=== PATIENT | female | born 1930 | race Caucasian/White ===

== ENCOUNTER 2020-12-15 14:48 | Inpatient (IN) | payer OTHER ==
[2020-12-15 16:05] LABS: Absolute Lymphocytes (CBC) 0.4 K/uL (0.7-4.9); Basophils % 0.5 % (0-1.3); Lymphocytes % 6.6 % (15.3-44.8); RBC Red Blood Cell Count 4.28 M/uL (3.86-4.86)
[2020-12-15 16:09] LABS: Protime INR 1.01
[2020-12-15 16:18] LABS: Albumin 3.6 g/dL (3.4-5.0); Bilirubin Total 0.4 mg/dL (0.2-1.0); Potassium 4.1 mmol/L (3.5-5.1); Protein, Total 7.3 g/dL (6.4-8.2)
--- NOTE | 2020-12-15 16:33 | RAD REPORT ---
EXAM DESCRIPTION: RAD - Hip Left 2 View - 12/15/2020 4:26 pm CLINICAL HISTORY: PAIN COMPARISON: No comparisons FINDINGS: Lucency is present traversing the intratrochanteric region compatible with a nondisplaced intertrochanteric proximal left femur fracture. No dislocation.
[2020-12-15] MEDS ORDERED: ONDANSETRON 4 MG/2 ML VIAL ONE (16:38)
[2020-12-15] MEDS ORDERED: MORPHINE 2 MG/ML SYR ONE (16:38)
--- NOTE | 2020-12-15 18:08 | ER ---
Nurse's Notes [facility] Name: Snehal Pacheco Age: 89 yrs Sex: Female : 1930 Arrival Date: 12/15/2020 Time: 14:52 Bed 23 Private MD: Diagnosis: Left hip fracture Presentation: 12/15 14:55 Chief complaint: EMS states: Fell from standing at home. C/o L hip and L leg pain. Care ss prior to arrival: Medication(s) given: Tylenol, 325 mg. Mechanism of Injury: Fall from standing position. 14:55 Acuity: TUNG 3 ss 14:55 Method Of Arrival: EMS: [facility] ss 14:55 Trauma event details: Injury occurred in the [facility], Injury occurred: at aa5 home. Injury occurred: December 15, 2020. 14:55 Coronavirus screen: Client denies travel out of the [place] in the last 14 days. At this aa5 time, the client does not indicate any symptoms associated with coronavirus-19. Ebola Screen: Patient negative for fever greater than or equal to 101.5 degrees Fahrenheit, and additional compatible Ebola Virus Disease symptoms. Initial Sepsis Screen: Does the patient meet any 2 criteria? No. Patient's initial sepsis screen is negative. Does the patient have a suspected source of infection? No. Patient's initial sepsis screen is negative. Risk Assessment: Do you want to hurt yourself or someone else? Patient reports no desire to harm self or others. Onset of symptoms was December 15, 2020. Trauma Activation: Not Applicable Physician: ED Physician; Name: ; Notified At: ; Arrived At: Physician: General Surgeon; Name: ; Notified At: ; Arrived At: Physician: Radiology; Name: ; Notified At: ; Arrived At: Physician: Respiratory; Name: ; Notified At: ; Arrived At: Physician: Lab; Name: ; Notified At: ; Arrived At: Historical: - Allergies: 15:30 No Known Allergies; aa5 - PMHx: 15:30 None; aa5 - Immunization history:: Adult Immunizations unknown. - Immunization history: Last tetanus immunization: unknown. - Social history:: Smoking status: Patient denies any tobacco usage or history of. Screenin:50 Abuse screen: Denies threats or abuse. Nutritional screening: No deficits noted. aa5 Tuberculosis screening: No symptoms or risk factors identified. Fall Risk Fall in past 12 months (25 points). IV access (20 points). Total Lopez Fall Scale indicates High Risk Score (45 or more points). Fall prevention measures have been instituted. Side Rails Up X 2 Placed Close to Nursing Station. Primary Survey: 14:55 NO uncontrolled hemorrhage observed. A: The patient is alert. Airway: patent. aa5 Breathing/Chest: Respiratory pattern: regular, Respiratory effort: spontaneous, unlabored, Chest inspection: symmetrical rise and fall of the chest. Circulation: Skin color: pink. Disability Alert. Exposure/Environment: A warming method has been applied: A warm blanket has been provided to the patient. 15:29 Reassessment Airway Airway Patent Breathing/Chest Respiratory pattern Regular aa5 Respiratory effort Spontaneous Unlabored Circulation Color [place] Disability Alert. Secondary Survey: 14:55 HEENT: No deficits noted. Gastrointestinal: No deficits noted. : No deficits noted. aa5 Musculoskeletal: Reports pain in left hip. Assessment: 15:29 General: Appears comfortable, Behavior is calm, cooperative. Pain: Pain: Complains of aa5 pain in left hip Pain currently is 5 out of 10 on a pain scale. Quality of pain is described as aching, Pain began post fall today Is intermittent, Aggravated by movement. Neuro: Level of Consciousness is awake, alert, obeys commands, Oriented to person, place, time, situation. Cardiovascular: Patient's skin is warm and dry. Respiratory: Airway is patent Respiratory effort is even, unlabored, Respiratory pattern is regular, symmetrical. GI: Abdomen is round Abd is soft and non tender X 4 quads. : No signs and/or symptoms were reported regarding the genitourinary system. EENT: No signs and/or symptoms were reported regarding the EENT system. Derm: Skin is pink, warm \\T\\ dry. Musculoskeletal: Reports pain in left hip. 16:55 Reassessment: Patient is alert, oriented x 3, equal unlabored respirations, skin aa5 warm/dry/pink. Pt states no complaints at this time. Pt states "I feel okay just as long as I don't move". . 17:50 Reassessment: Pt assisted with bedpan and urine specimen collection. . aa5 18:00 Reassessment: Pt resting in bed with eyes closed at this time, equal and unlabored aa5 respirations. . 18:15 Reassessment: Dr. Sinclair (orthopedic) at bedside . aa5 18:30 Reassessment: Pt assisted with bedpan, pt voided . aa5 20:28 Reassessment: attempt to call report to [facility] for pt admission, unavailable at this sg time,will try again. 20:31 Reassessment: receiving nurse to call back when ready to receive patient report. sg 20:46 Reassessment: Patient appears in no apparent distress at this time. report given to sg Chelsey RN, pt to be transported via stretcher, awaiting registration to complete admission at this time. Vital Signs: 14:55 BP 198 / 89; Pulse 79; Resp 16; Temp 97.3(TE); Pulse Ox 97% on R/A; ss 15:55 BP 174 / 87; Pulse 76; Resp 16 S; Pulse Ox 100% on R/A; aa5 16:55 BP 158 / 84; Pulse 79; Resp 16 S; Pulse Ox 100% on R/A; Pain 0/10; aa5 17:55 BP 158 / 86; Pulse 85; Resp 14 S; Temp 97.8(TE); Pulse Ox 98% on R/A; aa5 18:55 BP 144 / 88; Pulse 82; Resp 16 S; Pulse Ox 98% on R/A; aa5 20:47 BP 142 / 80; Pulse 80; Resp 16; Temp 97.8; Pulse Ox 98% on R/A; Mayra Coma Score: 14:55 Eye Response: spontaneous(4). Verbal Response: oriented(5). Motor Response: obeys aa5 commands(6). Total: 15. 20:47 Eye Response: spontaneous(4). Verbal Response: oriented(5). Motor Response: obeys sg commands(6). Total: 15. Trauma Score (Adult): 14:55 Eye Response: spontaneous(1); Verbal Response: oriented(1); Motor Response: obeys aa5 commands(2); Systolic BP: > 89 mm Hg(4); Respiratory Rate: 10 to 29 per min(4); [place] Score: 15; Trauma Score: 12 15:55 Eye Response: spontaneous(1); Verbal Response: oriented(1); Motor Response: obeys aa5 commands(2); Systolic BP: > 89 mm Hg(4); Respiratory Rate: 10 to 29 per min(4); [place]verne Score: 15; Trauma Score: 12 16:55 Eye Response: spontaneous(1); Verbal Response: oriented(1); Motor Response: obeys aa5 commands(2); Systolic BP: > 89 mm Hg(4); Respiratory Rate: 10 to 29 per min(4); Mayra Score: 15; Trauma Score: 12 17:55 Eye Response: spontaneous(1); Verbal Response: oriented(1); Motor Response: obeys aa5 commands(2); Systolic BP: > 89 mm Hg(4); Respiratory Rate: 10 to 29 per min(4); [place]ne Score: 15; Trauma Score: 12 18:55 Eye Response: spontaneous(1); Verbal Response: oriented(1); Motor Response: obeys aa5 commands(2); Systolic BP: > 89 mm Hg(4); Respiratory Rate: 10 to 29 per min(4); [place]ne Score: 15; Trauma Score: 12 20:47 Eye Response: spontaneous(1); Verbal Response: oriented(1); Motor Response: obeys sg commands(2); Systolic BP: > 89 mm Hg(4); Respiratory Rate: 10 to 29 per min(4); Arverne Score: 15; Trauma Score: 12 ED Course: 14:52 Patient arrived in ED. aa5 14:56 Triage completed. ss 15:00 Patient maintains SpO2 saturation greater than 95% on room air. Thermoregulation: warm aa5 blanket given to patient. 15:29 Patient has correct armband on for positive identification. Placed in gown. Bed in low aa5 position. Call light in reach. Side rails up X2. Pulse ox on. NIBP on. 15:29 Arm band placed on. aa5 15:35 Lucho Lobo NP is PHCP. pm1 15:35 Edvin Carr MD is Attending Physician. pm1 15:50 Initial lab(s) drawn, by me, sent to lab. Inserted saline lock: 20 gauge in left aa5 forearm, using aseptic technique. Blood collected. 15:57 Mandy Claire, SHARLENE is Primary Nurse. aa5 16:26 Hip Left 2 View XRAY In Process Unspecified. EDMS 18:05 Can Palacio DO is Hospitalizing Provider. pm1 19:20 Report given to SHARLENE Farias. aa5 Administered Medications: 16:24 Not Given (Patient Refused): morphine 4 mg IVP once; RASS on ADMIN: Combtv4, Very aa5 Agttd3, Agttd2, Rstlss1, AlertClm0, Drwsy-1, Lt Sdtn-2, Mod Sdtn-3, Dp Sdtn-4, UnArsble-5 16:24 Not Given (Patient Refused): Zofran (Ondansetron) 4 mg IVP once; over 2 minutes aa5 19:28 Drug: Rocephin 1 grams Route: IV; Rate: calculated rate; Site: left forearm; sg 19:30 Drug: NS 0.9% 1000 ml Route: IV; Rate: 75 ml/hr; Site: left forearm; sg Output: 18:30 Urine: 400ml (Voided); Total: 400ml. aa5 Outcome: 18:08 Decision to Hospitalize by Provider. pm1 20:48 Patient left the ED. sg Signatures: Dispatcher [employer] EDMS Jose Armando Henning RN RN sg Mandy Claire RN RN aa5 Sanam Mauricio RN RN ss Lucho Lobo, PRADEEP INCLUSION PARAEDUCATOR pm1 Corrections: (The following items were deleted from the chart) 18:39 18:15 Reassessment: Dr. Sinclair at bedside . aa5 aa5 19:34 14:55 Chief complaint: EMS states: Fell from standing at home. C/o R hip and R leg pain aa5 19:39 15:59 BP 174 / 87; Pulse 76bpm; Resp 16bpm; Spontaneous; Pulse Ox 100% RA; aa5 aa5
--- NOTE | 2020-12-15 18:09 | EDPHYS ---
Physician Documentation [facility] Name: Snehal Pacheco Age: 89 yrs Sex: Female : 1930 Arrival Date: 12/15/2020 Time: 14:52 Bed 23 Private MD: ED Physician Edvin Carr HPI: 12/15 15:50 This 89 yrs old Female presents to ER via EMS with complaints of Fall Injury. pm1 15:50 Details of fall: The patient fell from an upright position, while standing. Onset: The pm1 symptoms/episode began/occurred just prior to arrival. Associated injuries: The patient sustained Left hip. The patient has not experienced similar symptoms in the past. Patient normally uses a walker. She walked over to her book shelf without the walker, bent over to get a book from the bottom bookshelf and fell over. Presenting with pain to left hip. No head injury, headache, neck pain, LOC . Historical: - Allergies: 15:30 No Known Allergies; aa5 - PMHx: 15:30 None; aa5 - Immunization history:: Adult Immunizations unknown. - Immunization history: Last tetanus immunization: unknown. - Social history:: Smoking status: Patient denies any tobacco usage or history of. ROS: 15:50 Constitutional: Negative for fever, chills, and weight loss, Cardiovascular: Negative pm1 for chest pain, palpitations, and edema, Respiratory: Negative for shortness of breath, cough, wheezing, and pleuritic chest pain, Abdomen/GI: Negative for abdominal pain, nausea, vomiting, diarrhea, and constipation, Back: Negative for injury and pain. 15:50 Neck: Negative for injury, pain, and swelling, Skin: Negative for injury, rash, and discoloration, Neuro: Negative for headache, weakness, numbness, tingling, and seizure. 15:50 MS/extremity: Positive for pain, of the left hip, pain with trying to straighten out leg. Exam: 15:50 Constitutional: This is a well developed, well nourished patient who is awake, alert, pm1 and in no acute distress. Head/Face: Normocephalic, atraumatic. Neck: Trachea midline, no thyromegaly or masses palpated, and no cervical lymphadenopathy. Supple, full range of motion without nuchal rigidity, or vertebral point tenderness. No Meningismus. Chest/axilla: Normal chest wall appearance and motion. Nontender with no deformity. No lesions are appreciated. 15:50 Abdomen/GI: Soft, non-tender, with normal bowel sounds. No distension or tympany. No guarding or rebound. No evidence of tenderness throughout. Back: No spinal tenderness. No costovertebral tenderness. Full range of motion. Skin: Warm, dry with normal turgor. Normal color with no rashes, no lesions, and no evidence of cellulitis. 15:50 Cardiovascular: Exam negative for acute changes, Rate: normal, Rhythm: regular, Pulses: no pulse deficits are appreciated, Edema: is not appreciated. 15:50 Respiratory: Exam negative for acute changes, respiratory distress, shortness of breath. 15:50 Musculoskeletal/extremity: Extremities: grossly normal except: noted in the left hip: tenderness, There is no evidence of deformity, laceration, puncture, Circulation is intact in all extremities. Sensation intact. 15:50 Neuro: Exam negative for acute changes, Orientation: is normal, Mentation: is normal, Motor: is normal, moves all fours. Vital Signs: 14:55 BP 198 / 89; Pulse 79; Resp 16; Temp 97.3(TE); Pulse Ox 97% on R/A; ss 15:55 BP 174 / 87; Pulse 76; Resp 16 S; Pulse Ox 100% on R/A; aa5 16:55 BP 158 / 84; Pulse 79; Resp 16 S; Pulse Ox 100% on R/A; Pain 0/10; aa5 17:55 BP 158 / 86; Pulse 85; Resp 14 S; Temp 97.8(TE); Pulse Ox 98% on R/A; aa5 18:55 BP 144 / 88; Pulse 82; Resp 16 S; Pulse Ox 98% on R/A; aa5 20:47 BP 142 / 80; Pulse 80; Resp 16; Temp 97.8; Pulse Ox 98% on R/A; sg [place] Coma Score: 14:55 Eye Response: spontaneous(4). Verbal Response: oriented(5). Motor Response: obeys aa5 commands(6). Total: 15. 20:47 Eye Response: spontaneous(4). Verbal Response: oriented(5). Motor Response: obeys sg commands(6). Total: 15. Trauma Score (Adult): 14:55 Eye Response: spontaneous(1); Verbal Response: oriented(1); Motor Response: obeys aa5 commands(2); Systolic BP: > 89 mm Hg(4); Respiratory Rate: 10 to 29 per min(4); Mayra Score: 15; Trauma Score: 12 15:55 Eye Response: spontaneous(1); Verbal Response: oriented(1); Motor Response: obeys aa5 commands(2); Systolic BP: > 89 mm Hg(4); Respiratory Rate: 10 to 29 per min(4); [place] Score: 15; Trauma Score: 12 16:55 Eye Response: spontaneous(1); Verbal Response: oriented(1); Motor Response: obeys aa5 commands(2); Systolic BP: > 89 mm Hg(4); Respiratory Rate: 10 to 29 per min(4); [place] Score: 15; Trauma Score: 12 17:55 Eye Response: spontaneous(1); Verbal Response: oriented(1); Motor Response: obeys aa5 commands(2); Systolic BP: > 89 mm Hg(4); Respiratory Rate: 10 to 29 per min(4); Mayra Score: 15; Trauma Score: 12 18:55 Eye Response: spontaneous(1); Verbal Response: oriented(1); Motor Response: obeys aa5 commands(2); Systolic BP: > 89 mm Hg(4); Respiratory Rate: 10 to 29 per min(4); [place] Score: 15; Trauma Score: 12 20:47 Eye Response: spontaneous(1); Verbal Response: oriented(1); Motor Response: obeys sg commands(2); Systolic BP: > 89 mm Hg(4); Respiratory Rate: 10 to 29 per min(4); [place] Score: 15; Trauma Score: 12 MDM: 15:41 Patient medically screened. pm1 17:06 ED course: Left message for Dr. Sinclair. Dr. Sinclair is not president financial institution. We have no pm1 orthopedic president financial institution today. 17:27 ED course: Left message for Dr. Mcgill. Dr. Mcgill is not president financial institution. We have no pm1 orthopedic president financial institution today. 17:59 Data reviewed: vital signs. pm1 18:03 Physician consultation: Ozzy Sinclair MD was contacted at 18:04, regarding consult, pm1 patient's condition, and will see patient in ED, shortly. 12/15 15:42 Order name: CBC with Diff; Complete Time: 16:36 pm1 12/15 15:42 Order name: CMP; Complete Time: 16:36 pm1 12/15 15:42 Order name: PT-INR; Complete Time: 16:36 pm1 12/15 15:42 Order name: Ptt, Activated; Complete Time: 16:36 pm1 12/15 17:56 Order name: Urine Microscopic Only pm1 12/15 15:43 Order name: Hip Left 2 View XRAY; Complete Time: 16:36 pm1 12/15 17:57 Order name: Urine Microscopic Only; Complete Time: 19:16 EDMS 12/15 17:58 Order name: Urine Dipstick--Ancillary (enter results) bd 12/15 17:59 Order name: Urine Dipstick-Ancillary; Complete Time: 18:30 EDMS 12/15 18:45 Order name: Urine Culture EDDC 12/15 20:00 Order name: SARS-COV-2 RT PCR; Complete Time: 22:32 EDMS 12/15 15:42 Order name: IV Saline Lock; Complete Time: 16:04 pm1 12/15 17:54 Order name: Urine Dipstick-Ancillary (obtain specimen); Complete Time: 17:54 aa5 Administered Medications: 16:24 Not Given (Patient Refused): morphine 4 mg IVP once; RASS on ADMIN: Combtv4, Very aa5 Agttd3, Agttd2, Rstlss1, AlertClm0, Drwsy-1, Lt Sdtn-2, Mod Sdtn-3, Dp Sdtn-4, UnArsble-5 16:24 Not Given (Patient Refused): Zofran (Ondansetron) 4 mg IVP once; over 2 minutes aa5 19:28 Drug: Rocephin 1 grams Route: IV; Rate: calculated rate; Site: left forearm; sg 19:30 Drug: NS 0.9% 1000 ml Route: IV; Rate: 75 ml/hr; Site: left forearm; sg Disposition: 12/15/20 18:08 Hospitalization ordered by Can Palacio for Inpatient Admission. Preliminary diagnosis is Left hip fracture. - Bed requested for Telemetry/MedSurg (Inpatient). - Status is Inpatient Admission. sg - Condition is Stable. - Problem is new. - Symptoms have improved. Addendum: 12/19/2020 19:27 Co-signature as Attending Physician, Edvin Carr MD I agree with the assessment and t w4 plan of care. Signatures: Dispatcher [employer] [facility] Polly Pendleton RN RN Jose Armando Henning RN RN sg Mandy Claire RN RN aa5 Herberth Pedraza, MANAGER INFUSION-C MANAGER INFUSION-Cla1 Lucho Lobo, COMMERCIAL HOUSEKEEPER COMMERCIAL HOUSEKEEPER pm1 Edvin Carr MD MD tw4 Corrections: (The following items were deleted from the chart) 12/15 19:16 15:50 CORONAVIRUS+MR.LAB.BRZ ordered. [facility] 20:24 18:08 Hospitalization Ordered by Can Palacio DO for Inpatient Admission. Preliminary dw diagnosis is Left hip fracture. Bed requested for Telemetry/MedSurg (Inpatient). Status is Inpatient Admission. Condition is Stable. Problem is new. Symptoms have improved. pm1 20:29 20:24 12/15/2020 18:08 Hospitalization Ordered by Can Palacio DO for Inpatient dw Admission. Preliminary diagnosis is Left hip fracture. Bed requested for Telemetry/MedSurg (Inpatient). Status is Inpatient Admission. Condition is Stable. Problem is new. Symptoms have improved. dw 20:48 20:29 12/15/2020 18:08 Hospitalization Ordered by Can Palacio DO for Inpatient sg Admission. Preliminary diagnosis is Left hip fracture. Bed requested for Telemetry/MedSurg (Inpatient). Status is Inpatient Admission. Condition is Stable. Problem is new. Symptoms have improved. dw
[2020-12-15 18:18] LABS: Urine Blood TRACE (NEG); Urine Glucose NEGATIVE (NEG); Urine Protein NEGATIVE (NEG); Urine Specific Gravity 1.015 (1.005-1.030)
[2020-12-15 18:43] LABS: Urine Bacteria >50 /HPF (<20); Urine RBC <5 /HPF (NONE SEEN)
[2020-12-15] MEDS ORDERED: NA CHLORIDE 0.9% 1,000 ML ONE (20:08)
[2020-12-15] MEDS ORDERED: CEFTRIAXONE/SWI 1gm 1 GM/10 ML SYR ONE (20:09)
[2020-12-15] MEDS ORDERED: ACETAMINOPHEN 500 MG TAB PO PRN (20:53)
[2020-12-15] MEDS ORDERED: MORPHINE 2 MG/ML SYR IV PRN (20:53)
[2020-12-15] MEDS ORDERED: ONDANSETRON 4 MG/2 ML VIAL IV PRN (20:53)
[2020-12-15] MEDS: NA CHLORIDE 0.9% 1,000 ML IV SCH (20:53)
[2020-12-15 21:14] VITALS: BMI 16.9
--- NOTE | 2020-12-15 23:00 | P.HP ---
Certification for Inpatient Patient admitted to: Inpatient With expected LOS: >2 Midnights Patient will require the following post-hospital care: Rehabilitation Practitioner: I am a practitioner with admitting privileges, knowledge of patient current condition, hospital course, and medical plan of care. Services: Services provided to patient in accordance with Admission requirements found in Title 42 Section 412.3 of the Code of Federal Regulations <Herberth Pedraza - Last Filed: 12/15/20 22:57> Patient History Date of Service: 12/15/20 Reason for admission: Left hip fracture History of Present Illness: 89-year-old female with no significant past medical history presents to the emergency department after a mechanical fall from standing. Patient complaining of left hip pain found to have nondisplaced left intertrochanteric hip fracture. Case was discussed with orthopedics who saw the patient while she is in the emergency department, plan for surgical intervention tomorrow. - Past Medical/Surgical History Has patient received pneumonia vaccine in the past: No Diabetic: No -: none -: tonsillectomy -: cataract sx Psychosocial/ Personal History: Patient currently lives at home alone - Family History Family History: Reviewed- Non-Contributory - Social History Smoking Status: Never smoker Alcohol use: No CD- Drugs: No Caffeine use: Yes Place of Residence: Home <Herberth Pedraza - Last Filed: 12/15/20 22:57> Date of Service: 12/27/20 <Josep Lopez - Last Filed: 12/27/20 13:58> Allergies No Known Allergies Allergy (Unverified 12/15/20 20:37) Home Medications: Cephalexin [Keflex] 500 mg PO Q6HR 5 Days #20 cap 12/22/20 Docusate [Colace Cap*] 100 mg PO BID cap 12/22/20 Enoxaparin Sodium [Lovenox 40 MG INJ*] 40 mg SQ BID syr 12/22/20 Review of Systems 10-point ROS is otherwise unremarkable Musculoskeletal: Other (Left hip pain) <Herberth Pedraza - Last Filed: 12/15/20 22:57> Physical Examination - Vital Signs Temperature: 97.4 F Blood Pressure: 152/82 Pulse: 62 Respirations: 16 Pulse Ox (%): 97 - Physical Exam General: Alert, In no apparent distress HEENT: Atraumatic, PERRLA, Mucous membr. moist/pink Neck: Supple, 2+ carotid pulse no bruit, No LAD Respiratory: Clear to auscultation bilaterally, Normal air movement Cardiovascular: Regular rate/rhythm, Normal S1 S2 Gastrointestinal: Normal bowel sounds, No tenderness Musculoskeletal: No tenderness Integumentary: No rashes Neurological: Normal speech, Normal strength at 5/5 x4 extr, Normal tone, Normal affect - Studies Laboratory Data (last 24 hrs) 12/15/20 15:50: PT 11.6, INR 1.01, APTT 30.1 12/15/20 15:50: Sodium 124 L, Potassium 4.1, BUN 9, Creatinine 0.67, Glucose 127 H, Total Bilirubin 0.4, AST 31, ALT 30, Alkaline Phosphatase 72 12/15/20 15:50: WBC 6.70, Hgb 12.9, Hct 38.0, Plt Count 293 <Herberth Pedraza - Last Filed: 12/15/20 22:57> Assessment and Plan - Plan Assessment Nondisplaced left intertrochanteric femur fracture Plan Nondisplaced left intertrochanteric femur fracture: Seen by orthopedics while in the emergency department, plan is for surgical intervention tomorrow. Patient will likely require home health with physical therapy for rehabilitation depending on her progress with physical therapy after surgery as she lives alone. NPO after midnight, DVT prophylaxis SCDs at this time. P.r.n. pain medication. Discharge Plan: Home Plan to discharge in: Greater than 2 days - Advance Directives Does patient have a Living Will: No Does patient have a Durable POA for Healthcare: No - Code Status/Comfort Care Code Status Assessed: Yes (Full code) Time Spent Managing Pts Care (In Minutes): 55 <Herberth Pedraza - Last Filed: 12/15/20 22:57> - Plan Plan of care reviewed and agree as noted above by Herberth Pedraza femur fracture - Ortho consulted. lives alone, will likely benefit from SNF on discharge <Josep Lopez - Last Filed: 12/27/20 13:58>
[2020-12-16] MEDS: NA CHLORIDE 0.9% 1,000 ML IV SCH (04:27)
[2020-12-16 06:55] LABS: Absolute Lymphocytes (CBC) 0.5 K/uL (0.7-4.9); Basophils % 0.4 % (0-1.3); MPV 8.4 fL (7.6-11.3); RBC Red Blood Cell Count 4.38 M/uL (3.86-4.86)
[2020-12-16 07:06] LABS: BUN Blood Urea Nitrogen 7 mg/dL (7-18); Bicarbonate 25 mmol/L (21-32); Glucose Level 79 mg/dL (74-106); Magnesium 2.4 mg/dL (1.8-2.4); Potassium 3.6 mmol/L (3.5-5.1); Sodium Level 132 mmol/L (136-145)
[2020-12-16] MEDS ORDERED: Ringers Lactate 1,000 ML IV ONE (07:24)
[2020-12-16] MEDS ORDERED: CEFAZOLIN/SWI 1gm 1 GM/10 ML SYR ONE (07:40)
[2020-12-16] MEDS ORDERED: FENTANYL CITR 100 MCG/2 ML ONE (07:41)
[2020-12-16] MEDS ORDERED: propofoL 200 MG/20 ML VIAL IV ONE (07:41)
[2020-12-16] MEDS ORDERED: TRANEXAMIC ACID 1,000 MG in NA CHLORIDE 0.9% 50 ML IV SCH (08:00)
[2020-12-16] MEDS ORDERED: EPHEDRINE SULF 50 MG/ML VIAL ONE (08:34)
[2020-12-16] MEDS ORDERED: ONDANSETRON 4 MG/2 ML VIAL IV PRN (09:06)
[2020-12-16] MEDS ORDERED: MORPHINE 2 MG/ML SYR IV PRN (09:06)
[2020-12-16] MEDS ORDERED: HYDROCODONE/APAP 5/325 MG TAB PO PRN (09:06)
--- NOTE | 2020-12-16 09:22 | RAD REPORT ---
EXAM DESCRIPTION: RAD - Hip In Or - 12/16/2020 9:06 am FINDINGS: A total of 9 portable C-arm views were submitted from a fluoroscopic assisted hip fracture repair. Images show stepwise placement of fracture fixation hardware. No suspicious or unexpected fi nding. Fluoro time was 1.6 minutes. Cumulative dose was 9.18 mGy.
[2020-12-16] MEDS ORDERED: METHOCARBAMOL IV ONE (09:30)
[2020-12-16] MEDS ORDERED: NA CHLORIDE 0.9% IV ONE (09:30)
--- NOTE | 2020-12-16 10:00 | OP ---
Surgeon: Ozzy Sinclair MD Preoperative Diagnosis: Nondisplaced left intertrochanteric hip fracture. Postoperative Diagnosis: Nondisplaced left intertrochanteric hip fracture. Procedure Performed: IM rodding, left intertrochanteric hip fracture. Bass Guitar Teacher: KATEY Barker. Complications: None. Disposition: Recovery room in stable. Procedure In Detail: The patient was taken to the operative suite, placed in supine position, induce d anesthesia. The patient was suspended in the fracture table. The fracture pattern was remained no ndisplaced and a 9 x 130 nail was introduced with an 85 mm lag screw and a 32 mm distal interlocking screw. A layered closure was performed. Anatomic reduction was realized. The patient is being reve rsed from anesthesia and should be in the recovery room shortly. RAUDEL/JERRICA Voice ID: [id number] Report ID: [id number]
--- NOTE | 2020-12-16 10:03 | RAD REPORT ---
EXAM DESCRIPTION: RAD - Pelvis - 12/16/2020 9:53 am CLINICAL HISTORY: S/P L HIP IM RODDING COMPARISON: Hip In Or dated 12/16/2020; Hip Left 2 View dated 12/15/2020 TECHNIQUE: AP imaging of the pelvis was obtained. FINDINGS: Left femur fracture fixation hardware in place. Hardware is in good position with no suspi cious or unexpected bone or hardware finding. Underlying osteopenic and degenerative changes of the lower pelvis and bilateral hip joints noted aga in. IMPRESSION: Fracture fixation hardware in good position. No unexpected finding.
[2020-12-16] MEDS ORDERED: MEPERIDINE HCL 25 MG/ML SYR ONE (10:12)
[2020-12-16] MEDS: NACHLORIDE 0.45% 1,000 ML IV SCH ×2 (10:45→23:48)
[2020-12-16] MEDS ORDERED: POTASSIUM CL SA 10 MEQ TAB PO ONE (11:00)
[2020-12-16] MEDS: CEFAZOLIN/SWI 1gm 1 GM/10 ML SYR IV SCH (16:48)
--- NOTE | 2020-12-16 17:20 | P.PN ---
Subjective Date of Service: 12/16/20 Chief Complaint: Left hip fracture Subjective: Improving (pain better after surgery, doing well, breathing comfortably) Review of Systems 10-point ROS is otherwise unremarkable Physical Examination - Vital Signs Temperature: 97.9 F Blood Pressure: 190/84 Pulse: 85 Respirations: 18 Pulse Ox (%): 96 Assessment & Plan Physician Review Additional Text: Physical Exam General: Alert, In no apparent distress HEENT: Atraumatic, PERRLA, Mucous membr. moist/pink Pulm: Clear to auscultation bilaterally, Normal air movement CV: Regular rate/rhythm, Normal S1 S2 abd: Normal bowel sounds, No tenderness Ext: L hip with surgical dressing in place, c/d/i, wiggles toes, intact sensation distally Problem List Nondisplaced left intertrochanteric femur fracture ortho consulted, s/p OR fixation this morning patient doing well family considering skilled rehab patient lives home alone in apartment open to idea of skilled if possible family will discuss if able to care for her at home if non-weightbearing Dispo: PT/OT consulted, possible skilled rehab Time Spent Managing Pts Care (In Minutes): 35
[2020-12-16] MEDS: HYDRALAZINE HCL 20 MG/ML VIAL IV PRN (17:39)
[2020-12-16] MEDS ORDERED: CEFTRIAXONE/SWI 1gm 1 GM/10 ML SYR IV SCH (21:00)
[2020-12-16] MEDS ORDERED: CEFTRIAXONE 1 GM/NS 50 ML 1 GM/50 ML BAG IV SCH (21:00)
[2020-12-16] MEDS: DOCUSATE NA 100 MG CAP PO SCH (21:03)
[2020-12-17] MEDS: CEFAZOLIN/SWI 1gm 1 GM/10 ML SYR IV SCH (01:00)
[2020-12-17] MEDS: ENOXAPARIN 40 MG/0.4 ML SQ SCH (03:52)
[2020-12-17] MEDS: HYDRALAZINE HCL 20 MG/ML VIAL IV PRN (04:14)
[2020-12-17 06:31] LABS: Absolute Lymphocytes (CBC) 0.6 K/uL (0.7-4.9); Basophils % 0.3 % (0-1.3); Lymphocytes % 8.2 % (15.3-44.8); MPV 8.4 fL (7.6-11.3); RBC Red Blood Cell Count 4.16 M/uL (3.86-4.86)
[2020-12-17 06:42] LABS: BUN Blood Urea Nitrogen 7 mg/dL (7-18); Bicarbonate 23 mmol/L (21-32); Glucose Level 85 mg/dL (74-106); Magnesium 2.4 mg/dL (1.8-2.4); Potassium 3.4 mmol/L (3.5-5.1); Sodium Level 129 mmol/L (136-145)
[2020-12-17] MEDS ORDERED: lisinopriL 10 MG TAB PO SCH (09:00)
[2020-12-17] MEDS ORDERED: DOCUSATE NA 100 MG CAP PO SCH (09:00)
[2020-12-17] MEDS: DOCUSATE NA 100 MG CAP PO SCH ×2 (09:23→20:59)
[2020-12-17] MEDS: NACHLORIDE 0.45% 1,000 ML IV SCH (12:44)
--- NOTE | 2020-12-17 16:07 | P.PN ---
Subjective Date of Service: 12/17/20 Chief Complaint: Left hip fracture Subjective: Improving (feeling better, getting more of an appetite, breathing comfortably on room air, pain is better controlled. Had high blood pressure yesterday, patient reports she was in pain.) Review of Systems 10-point ROS is otherwise unremarkable Physical Examination - Vital Signs Temperature: 98.7 F Blood Pressure: 134/62 Pulse: 93 Respirations: 18 Pulse Ox (%): 96 Assessment & Plan Physician Review Additional Text: Physical Exam General: Alert, In no apparent distress HEENT: MMM Pulm: Clear to auscultation bilaterally, Normal air movement CV: Regular rate/rhythm, Normal S1 S2 abd: Normal bowel sounds, No tenderness Ext: L hip with surgical dressing in place, c/d/i, wiggles toes, intact sensation distally Problem List Nondisplaced left intertrochanteric femur fracture s/p repair (12/16) Hyponatremia elevated BP without h/o HTN ortho consulted, s/p OR fixation on 12/16, non-weightbearing on L leg patient doing well, family considering skilled rehab patient lives home alone in apartment, open to idea of skilled if possible family will discuss if able to care for her at home if non-weightbearing mild hyponatremia, likely due to mild hypovolemia, on IVF elevated BP - pt reports due to pain yesterday, better today, refused medications will consult social security specialist for SNF rehab, PT/OT to evaluate Dispo: PT/OT consulted, possible skilled rehab Time Spent Managing Pts Care (In Minutes): 35
[2020-12-17] MEDS: CEFTRIAXONE/SWI 1gm 1 GM/10 ML SYR IVP SCH (17:45)
[2020-12-17] MEDS: MELATONIN 5 MG TABLET PO PRN (22:06)
[2020-12-18] MEDS: NACHLORIDE 0.45% 1,000 ML IV SCH (01:48)
[2020-12-18] MEDS: ENOXAPARIN 40 MG/0.4 ML SQ SCH (04:00)
[2020-12-18] MEDS: POLYETHYL GLY 3350 17 GM/DOSE PO PRN (05:15)
[2020-12-18 05:30] LABS: Absolute Lymphocytes (CBC) 0.7 K/uL (0.7-4.9); Basophils % 0.3 % (0-1.3); Hematocrit 34.3 % (36.0-45.0); RBC Red Blood Cell Count 3.86 M/uL (3.86-4.86)
[2020-12-18 05:48] LABS: BUN Blood Urea Nitrogen 7 mg/dL (7-18); Bicarbonate 26 mmol/L (21-32); Glucose Level 87 mg/dL (74-106); Magnesium 2.1 mg/dL (1.8-2.4); Potassium 3.4 mmol/L (3.5-5.1); Sodium Level 131 mmol/L (136-145)
[2020-12-18] MEDS ORDERED: POTASSIUM 25 MEQ EFFERV TAB PO ONE (06:02)
[2020-12-18] MEDS: DOCUSATE NA 100 MG CAP PO SCH ×2 (10:05→20:29)
[2020-12-18] MEDS: CEFTRIAXONE/SWI 1gm 1 GM/10 ML SYR IVP SCH (10:05)
[2020-12-18] MEDS ORDERED: BISACODYL 10 MG RECTAL SUPP PR ONE (13:33)
--- NOTE | 2020-12-18 17:21 | P.PN ---
Subjective Date of Service: 12/18/20 Chief Complaint: Left hip fracture Subjective: Improving (feeling better, eating well, reports constipation, passing flatus, but no BM since admission) Review of Systems 10-point ROS is otherwise unremarkable Physical Examination - Vital Signs Temperature: 98.3 F Blood Pressure: 143/70 Pulse: 73 Respirations: 16 Pulse Ox (%): 99 - Studies Microbiology Data (last 24 hrs): 12/15/20 17:45 Clean Catch Urine G[place] Count - Final >100,000 CFU/ML. 12/15/20 17:45 Clean Catch Urine - Final Escherichia Coli Assessment & Plan Physician Review Additional Text: Physical Exam General: Alert, In no apparent distress HEENT: MMM Pulm: Clear to auscultation bilaterally, Normal air movement CV: Regular rate/rhythm, Normal S1 S2 abd: Normal bowel sounds, No tenderness Ext: L hip dressing in place, c/d/i, wiggles toes, intact sensation distally, no swelling appreciated on palpation Problem List Nondisplaced left intertrochanteric femur fracture s/p repair (12/16) Hyponatremia UTI, cystitis ortho consulted, s/p OR fixation on 12/16, non-weightbearing on L leg patient doing well, family would like to pursue SNF rehab at [facility] - SW/CM consulted mild hyponatremia, likely due to mild hypovolemia, on IVF, mild improvement, will dc IVF, pt eating better will consult bilingual social worker for SNF rehab, PT/OT working with patient pt reports slight change of color and smell to urine days before admission, on rocephin, Ur Cx with pansensitive e.coli, switch to keflex anticoagulation / VTE prophylaxis per ortho Dispo: dc to skilled rehab when accepted Time Spent Managing Pts Care (In Minutes): 40
[2020-12-18] MEDS: MELATONIN 5 MG TABLET PO PRN (20:27)
[2020-12-18] MEDS: CEPHALEXIN 250 MG CAP PO SCH (20:27)
[2020-12-19] MEDS: CEPHALEXIN 250 MG CAP PO SCH ×5 (01:35→23:50)
[2020-12-19 05:46] LABS: Hematocrit 34.3 % (36.0-45.0); MPV 7.9 fL (7.6-11.3); RBC Red Blood Cell Count 3.86 M/uL (3.86-4.86)
[2020-12-19] MEDS: ENOXAPARIN 40 MG/0.4 ML SQ SCH (05:53)
[2020-12-19 05:57] LABS: BUN Blood Urea Nitrogen 7 mg/dL (7-18); Bicarbonate 27 mmol/L (21-32); Glucose Level 86 mg/dL (74-106); Potassium 3.8 mmol/L (3.5-5.1); Sodium Level 133 mmol/L (136-145)
[2020-12-19] MEDS: DOCUSATE NA 100 MG CAP PO SCH ×2 (08:57→21:27)
--- NOTE | 2020-12-19 16:55 | P.PN ---
Subjective Date of Service: 12/19/20 Chief Complaint: Left hip fracture Subjective: Improving (no new complaints, eating well, breathing well, had BM, pain with movement, no swelling) Review of Systems 10-point ROS is otherwise unremarkable Physical Examination - Vital Signs Temperature: 97.9 F Blood Pressure: 132/89 Pulse: 72 Respirations: 16 Pulse Ox (%): 96 Assessment & Plan Physician Review Additional Text: Physical Exam General: Alert, NAD HEENT: MMM Pulm: Clear to auscultation bilaterally, Normal air movement CV: Regular rate/rhythm, Normal S1 S2 Abd: Normal bowel sounds, No tenderness Ext: L hip dressing c/d/i, wiggles toes, intact sensation distally Problem List Nondisplaced left intertrochanteric femur fracture s/p repair (12/16) Hyponatremia UTI, cystitis ortho consulted, s/p OR fixation on 12/16, non-weightbearing on L leg patient doing well, family would like to pursue SNF rehab at [facility] - SW/CM consulted mild hyponatremia, likely due to mild hypovolemia, improved slightly with IVF will consult social service agency director for SNF rehab, PT/OT working with patient pt reports slight change of color and smell to urine days before admission, on rocephin, Ur Cx with pansensitive e.coli, continue keflex anticoagulation / VTE prophylaxis per ortho - anticoagulation for 28 days Dispo: dc to skilled rehab when accepted Time Spent Managing Pts Care (In Minutes): 35
[2020-12-19] MEDS: LACTOBACILLUS/ACIDOPHILUS TAB PO SCH (17:05)
--- NOTE | 2020-12-19 17:26 | P.PN ---
Subjective Date of Service: 12/19/20 Chief Complaint: Left hip fracture Subjective: No new changes Review of Systems is unable to be obtained Physical Examination - Vital Signs Temperature: 97.9 F Blood Pressure: 132/89 Pulse: 72 Respirations: 16 Pulse Ox (%): 96 - Physical Exam Musculoskeletal: Other (dressing c/d/i) - Studies hbg 12.0 Assessment And Plan - Plan transfer to skilled rehab [facility] only, follow up in office 2 weeks post op Discharge Plan: Transfer Plan to discharge in: 24 Hours Physician Review Additional Text: Physical Exam General: Alert, NAD HEENT: MMM Pulm: Clear to auscultation bilaterally, Normal air movement CV: Regular rate/rhythm, Normal S1 S2 Abd: Normal bowel sounds, No tenderness Ext: L hip dressing c/d/i, wiggles toes, intact sensation distally Problem List Nondisplaced left intertrochanteric femur fracture s/p repair (12/16) Hyponatremia UTI, cystitis ortho consulted, s/p OR fixation on 12/16, non-weightbearing on L leg patient doing well, family would like to pursue SNF rehab at [facility] - / consulted mild hyponatremia, likely due to mild hypovolemia, improved slightly with IVF will consult social sciences department chair for SNF rehab, PT/OT working with patient pt reports slight change of color and smell to urine days before admission, on rocephin, Ur Cx with pansensitive e.coli, continue keflex anticoagulation / VTE prophylaxis per ortho - anticoagulation for 28 days Dispo: dc to skilled rehab when accepted
[2020-12-19] MEDS: MELATONIN 5 MG TABLET PO PRN (23:51)
[2020-12-20] MEDS: ENOXAPARIN 40 MG/0.4 ML SQ SCH (03:55)
[2020-12-20] MEDS: CEPHALEXIN 250 MG CAP PO SCH ×4 (06:22→23:54)
[2020-12-20 07:04] LABS: BUN Blood Urea Nitrogen 10 mg/dL (7-18); Bicarbonate 27 mmol/L (21-32); Glucose Level 84 mg/dL (74-106); Potassium 3.8 mmol/L (3.5-5.1); Sodium Level 130 mmol/L (136-145)
[2020-12-20] MEDS: LACTOBACILLUS/ACIDOPHILUS TAB PO SCH (09:20)
[2020-12-20] MEDS: DOCUSATE NA 100 MG CAP PO SCH ×2 (09:20→21:00)
[2020-12-20] MEDS ORDERED: POTASSIUM 25 MEQ EFFERV TAB PO ONE (12:00)
--- NOTE | 2020-12-20 13:13 | P.PN ---
Subjective Date of Service: 12/20/20 Chief Complaint: Left hip fracture Subjective: Improving (feeling well, without complaints, had large BM overnight, feels better. eating well. refused blood pressure medication) Review of Systems 10-point ROS is otherwise unremarkable Physical Examination - Vital Signs Temperature: 97.8 F Blood Pressure: 175/74 Pulse: 60 Respirations: 16 Pulse Ox (%): 99 Assessment & Plan Physician Review Additional Text: Physical Exam General: Alert, NAD HEENT: MMM Pulm: Clear to auscultation bilaterally, Normal air movement CV: Regular rate/rhythm, Normal S1 S2 Abd: Normal bowel sounds, No tenderness Ext: L hip with no tenderness, wiggles toes, intact sensation distally Problem List Nondisplaced left intertrochanteric femur fracture s/p repair (12/16) Hyponatremia UTI, cystitis ortho consulted, s/p OR fixation on 12/16, touchdown weight-bearing on left leg. patient doing well, family would like to pursue SNF rehab- SW/CM consulted mild hyponatremia, improved slightly with IVF pt reports slight change of color and smell to urine days before admission, on rocephin, Ur Cx with pansensitive e.coli, continue keflex anticoagulation / VTE prophylaxis per ortho - anticoagulation for 28 days - xarelto/lovenox Dispo: dc to skilled rehab once accepted Will need to follow up with ortho 2 weeks postop Time Spent Managing Pts Care (In Minutes): 35
[2020-12-20] MEDS: lisinopriL 10 MG TAB PO SCH (13:37)
[2020-12-20] MEDS: MELATONIN 5 MG TABLET PO PRN (21:45)
[2020-12-21 01:39] VITALS: O2SAT 96
[2020-12-21] MEDS: CEPHALEXIN 250 MG CAP PO SCH ×3 (05:40→18:02)
[2020-12-21 06:34] LABS: BUN Blood Urea Nitrogen 10 mg/dL (7-18); Bicarbonate 31 mmol/L (21-32); Glucose Level 83 mg/dL (74-106); Magnesium 1.9 mg/dL (1.8-2.4); Sodium Level 133 mmol/L (136-145)
[2020-12-21] MEDS: LACTOBACILLUS/ACIDOPHILUS TAB PO SCH ×2 (09:00→09:22)
[2020-12-21] MEDS: lisinopriL 10 MG TAB PO SCH ×2 (09:00→09:22)
[2020-12-21] MEDS: DOCUSATE NA 100 MG CAP PO SCH ×3 (09:00→20:16)
[2020-12-21] MEDS: ENOXAPARIN 40 MG/0.4 ML SQ SCH ×2 (09:00→09:23)
[2020-12-21] MEDS: MELATONIN 5 MG TABLET PO PRN (20:23)
--- NOTE | 2020-12-21 20:23 | P.PN ---
Subjective Date of Service: 12/21/20 Chief Complaint: Left hip fracture Subjective: No new changes (doing well, without complaints. Did refuse lovenox today, refusing medications, asking for BP checks to stop as well. Wants to take "natural" vitamins/supplements instead.) Review of Systems 10-point ROS is otherwise unremarkable Physical Examination - Vital Signs Temperature: 99 F Blood Pressure: 154/71 Pulse: 70 Respirations: 18 Pulse Ox (%): 98 Assessment & Plan Physician Review Additional Text: Physical Exam General: Alert, NAD HEENT: MMM Pulm: Clear to auscultation bilaterally, Normal air movement CV: Regular rate/rhythm, Normal S1 S2 Abd: soft, nontender, nondistended Ext: L hip with no tenderness, wiggles toes, intact sensation distally Problem List Nondisplaced left intertrochanteric femur fracture s/p repair (12/16) Hyponatremia UTI, cystitis ortho consulted, s/p OR fixation on 12/16, touchdown weight-bearing on left leg. patient doing well, family would like to pursue SNF rehab- SW/CM consulted mild hyponatremia, improving pt reports slight change of color and smell to urine days before admission, on rocephin, Ur Cx with pansensitive e.coli, continue keflex anticoagulation / VTE prophylaxis per ortho - anticoagulation for 28 days - xarelto/lovenox discussed importance of lovenox Dispo: dc to skilled rehab once accepted Will need to follow up with ortho 2 weeks postop Time Spent Managing Pts Care (In Minutes): 35
[2020-12-22] MEDS: CEPHALEXIN 250 MG CAP PO SCH ×3 (00:31→12:57)
[2020-12-22] MEDS: LACTOBACILLUS/ACIDOPHILUS TAB PO SCH (09:00)
[2020-12-22] MEDS: lisinopriL 10 MG TAB PO SCH (09:00)
[2020-12-22] MEDS: ENOXAPARIN 40 MG/0.4 ML SQ SCH (09:00)
[2020-12-22] MEDS: DOCUSATE NA 100 MG CAP PO SCH (09:16)
[2020-12-22] MEDS: POLYETHYL GLY 3350 17 GM/DOSE PO PRN (13:24)
[2020-12-22 13:59] VITALS: BP 130/77; TEMP 98.6
[2020-12-22] MEDS ORDERED: ENOXAPARIN 40 MG/0.4 ML SQ SCH (21:00)
--- NOTE | 2020-12-27 14:12 | P.DS ---
Admission Date: 12/15/20 Discharge Date: 12/22/20 Disposition: TRANSFER TO SNF - REHAB Discharge Condition: GOOD Reason for Admission: Left hip fracture Consultations: Ortho - Dr. Sinclair Procedures: Hip X-ray (12/15): Lucency is present traversing the intratrochanteric region compatible with a nondisplaced intertrochanteric proximal left femur fracture. No dislocation. Hip X-ray (12/16): A total of 9 portable C-arm views were submitted from a fluoroscopic assisted hip fracture repair. Images show stepwise placement of fracture fixation hardware. No suspicious or unexpected finding. Pelvis X-ray (12/16): Left femur fracture fixation hardware in place. Hardware is in good position with no suspicious or unexpected bone or hardware finding. Underlying osteopenic and degenerative changes of the lower pelvis and bilateral hip joints noted again. IM rodding, left intertrochanteric hip fracture (12/16) by Dr. Sinclair Problem List Nondisplaced left intertrochanteric femur fracture s/p repair (12/16) Chronic Hyponatremia UTI, acute uncomplicated cystitis Brief History of Present Illness: 89-year-old female with no significant past medical history presents to the emergency department after a mechanical fall from standing. Patient complaining of left hip pain found to have nondisplaced left intertrochanteric hip fracture. Case was discussed with orthopedics who saw the patient while she is in the emergency department, plan for surgical intervention Hospital Course: Patient underwent IM rodding / surgical correction without any complications. She was found to have a UTI on admission and was treated and subsequently discharged with antibiotics. Postoperative course was complicated by hyper tension, even when pain was well controlled. Patient refused anti-hypertensive medications. She also refused lovenox and other medications on certain days, stating they "were not natural" and she would prefer to take natural alternatives or vitamin supplementation instead. The importance of DVT prophylaxis following her surgery was discussed/reiterated. She is discharged to SNF to continue PT (touchdown weightbearing) and her antibiotic. She will f/u with Ortho 2 weeks post-op. Ortho recommended lovenox or xarelto x 28days after surgery. Vital Signs/Physical Exam: Physical Exam General: Alert, NAD HEENT: MMM, hard of hearing (hearing-aids) Pulm: Clear to auscultation bilaterally, Normal air movement CV: Regular rate/rhythm, Normal S1 S2 Abd: soft, nontender, nondistended Ext: L hip with no tenderness, wiggles toes, intact sensation distally, no swelling at site of surgery Temp Pulse Resp BP Pulse Ox 98.6 F 85 16 130/77 95 12/22/20 12:00 12/22/20 12:00 12/22/20 12:00 12/22/20 12:00 12/22/20 12:00 Laboratory Data at Discharge: WBC 4.50 K/uL (4.3-10.9) 12/19/20 05:19 Hgb 12.0 g/dL (12.0-15.0) 12/19/20 05:19 Hct 34.3 % (36.0-45.0) L 12/19/20 05:19 Plt Count 244 K/uL (152-406) 12/19/20 05:19 PT 11.6 SECONDS (9.5-12.5) 12/15/20 15:50 INR 1.01 12/15/20 15:50 APTT 30.1 SECONDS (24.3-36.9) 12/15/20 15:50 Sodium 133 mmol/L (136-145) L 12/21/20 06:02 Potassium 4.0 mmol/L (3.5-5.1) 12/21/20 06:02 BUN 10 mg/dL (7-18) 12/21/20 06:02 Creatinine 0.47 mg/dL (0.55-1.3) L 12/21/20 06:02 Glucose 83 mg/dL (74-106) 12/21/20 06:02 Magnesium 1.9 mg/dL (1.8-2.4) 12/21/20 06:02 Total Bilirubin 0.4 mg/dL (0.2-1.0) 12/15/20 15:50 AST 31 U/L (15-37) 12/15/20 15:50 ALT 30 U/L (12-78) 12/15/20 15:50 Alkaline Phosphatase 72 U/L (45-117) 12/15/20 15:50 Home Medications: Cephalexin [Keflex] 500 mg PO Q6HR 5 Days #20 cap 12/22/20 Docusate [Colace Cap*] 100 mg PO BID cap 12/22/20 Enoxaparin Sodium [Lovenox 40 MG INJ*] 40 mg SQ BID syr 12/22/20 New Medications: Cephalexin [Keflex] 500 mg PO Q6HR 5 Days #20 cap Diet: Regular Activity: Touch-down (of left leg) Followup: Jose Armando Mcgill MD [ACTIVE - CAN ADMIT] - Efren Andrew DO [Primary Care Provider] - Time spent managing pt's care (in minutes): 40
--- NOTE | 2021-01-29 21:08 | CON ---
Reason For Consultation: Left IT hip fracture. History Of Present Illness: The patient admitted for above-mentioned on 12/15/2020 with a left hip f racture. It was intertrochanteric in nature. It will require intramedullary rodding and fixation. She will need medical clearance. After this, we will proceed to the operative suite. Past medical h istory should have no bearing on optimization for the planned procedure. We will take her to the ope rative suite after she is being cleared medically. RAUDEL/JERRICA Voice ID: [id number] Report ID: [id number]
== END 2020-12-22 16:46 | DRG 481 ==
LOC: ER 14:48 → ERHOLD 20:17 → 2ND 20:50
PROVIDERS: ADMIT Hospitalist; ATTEND Hospitalist
PROC: 0QS706Z Reposition Left Upper Femur with Intramedullary Internal Fixation Device, Open Approach (ICD-10-PCS; principal; 2020-12-16 07:30)
DX: S72.145A Nondisplaced intertrochanteric fracture of left femur, initial encounter for closed fracture (principal); E87.1 Hypo-osmolality and hyponatremia; N39.0 Urinary tract infection, site not specified; R03.0 Elevated blood-pressure reading, without diagnosis of hypertension; B96.20 Unspecified Escherichia coli [E. coli] as the cause of diseases classified elsewhere; W18.30XA Fall on same level, unspecified, initial encounter; Z60.2 Problems related to living alone; Z20.822 Contact with and (suspected) exposure to COVID-19
CPT/HCPCS: 36415; 72170; 73530; 80048; 80053; 81003; 81015; 83735; 85025; 85027; 85610; 85730; 87077; 87086; 87088; 87186; 96374; 97110; 97112; 97116; 97161; 97530; 99284; J0360; J0690; J0696; J1650; J2175; J2270; J2405; J2704; J2800; J3010; J7030; J7120; U0003